=== PATIENT | female | born 1985 ===

== ENCOUNTER 2016-10-04 06:47 | Day surgery (SDC) | payer OTHER ==
[2016-09-16 13:56] VITALS: BMI 30.4
[2016-10-04] MEDS ORDERED: Lidocaine 2% w Epi 1:100,000 Inj IJ ONE (07:33)
[2016-10-04] MEDS ORDERED: ceFAZolin IV 1 gm in Dextrose 1 GM/50 ML BAG IVPB ONE (07:33)
[2016-10-04] MEDS ORDERED: Acetaminophen-Codeine 300/30 mg Tab PO PRN (07:54)
[2016-10-04] MEDS ORDERED: Dextrose 5%/0.45% NS 1,000 ML IV SCH (08:00)
[2016-10-04] MEDS ORDERED: Midazolam 2 MG/2 ML VIAL ONE (08:13)
[2016-10-04] MEDS ORDERED: Propofol 10 mg/ml Inj (20 ML) ONE (08:13)
[2016-10-04] MEDS ORDERED: Rocuronium 10 mg/ml (10 ml) ONE (08:16)
[2016-10-04] MEDS ORDERED: Phenylephrine 10 mg/ml Inj ONE (08:17)
[2016-10-04] MEDS ORDERED: Lidocaine 4% (Laryng-O-Jet) Kit MM ONE (08:18)
[2016-10-04] MEDS ORDERED: Lactated Ringer's 1,000 ML IV ONE ×2 (08:20→09:47)
[2016-10-04] MEDS ORDERED: Esmolol 100 mg/10ml Inj IV ONE (08:57)
[2016-10-04] MEDS ORDERED: Neostigmine Methylsulfate 3mg/3ml Syringe IV ONE (09:29)
[2016-10-04] MEDS ORDERED: HYDROmorphone 0.5 mg/0.5 ml ISec IVP PRN (09:50)
[2016-10-04] MEDS ORDERED: HYDROmorphone 0.5 mg/0.5 ml ISec IVP ONE ×2 (10:26→10:54)
--- NOTE | 2016-10-04 11:07 | OP ---
PROCEDURE DATE: 10/04/2016 PREPROCEDURE DIAGNOSES: Deviated septum, enlarged turbinates, sinusitis. POSTPROCEDURE DIAGNOSES: Deviated septum, enlarged turbinates, sinusitis. PROCEDURES: Endoscopic bilateral maxillary antrostomy, endoscopic bilateral ethmoidectomy, endoscopi c bilateral sphenoidotomy, endoscopic bilateral inferior turbinate reduction, septoplasty. SIGNIFICANT FINDINGS: Maxillary and sphenoid antrum stenosed on both sides, sinusitis changes noted in the ethmoid sinuses, septum is deviated, inferior turbinates enlarged. DESCRIPTION OF PROCEDURE: The patient was brought in room, placed in a supine position. Anesthesia was initiated through an ET tube. Navigation was set up and used throughout the case in order to ens ure that the skull base and orbits were not entered. Adrenaline soaked pledgets were inserted in the nasal cavity for at least 5 minutes, then removed. The patient was draped in the usual manner. The septum was injected on both sides with lidocaine with epinephrine. A [place]'s incision was made on the left and a mucoperichondrial flap was raised. A vertical incision was made in the cartilage nicole ving a 1.5 cm superior and anterior strut. A mucoperichondrial flap was raised on the other side. D eviated portion of the cartilage and bone were removed using forceps and chisel. A quilting suture w as used to suture the 2 flaps together and close the [place]'s incision. A 0 degree scope was used t o visualize the inferior turbinates, which were noted to be enlarged and reduced in size using scisso rs, going from an inferior to superior, anterior to posterior direction on both sides, first on the l eft, then on the right. Bleeding was controlled using suction cautery. Next, attention was turned t o the left. The middle turbinate was injected with lidocaine with epinephrine and medialized. The u ncinate process was medialized using a [place] elevator and removed. Debrider was used to enter the et hmoid bulla, going posteriorly to the basal lamella, then anteriorly and superiorly until the ethmoid bulla was removed. Basal lamella was entered. Posterior ethmoid cells were entered and opened. Sk ull base was identified and followed anteriorly, all the way to the area of the anterior ethmoid air cells. Next, a curved suction hooked up to navigation was used to locate the maxillary antrum, which was noted to be stenosed and opened using forceps. Bleeding was controlled using adrenaline soaked pledgets. Attention was turned to the other side. The middle turbinate was injected with lidocaine with epinephrine and medialized. The uncinate process was medialized and removed. The ethmoid bulla was entered inferomedially, going posteriorly to the basal lamella, then anteriorly and superiorly u ntil the ethmoid bulla was removed. The basal lamella was entered. Posterior ethmoid cells were ent ered and opened. Skull base was identified and followed anteriorly all the way to the area of the an terior ethmoid air cells. Curved suction hooked up to navigation was used to locate the maxillary an trum, which was noted to be stenosed and opened using forceps. Next, suction was used to locate the sphenoid antrum, first on the left, then on the right. They were both noted to be stenosed and opene d using forceps. Splints were placed. Stents were placed. The patient was taken off anesthesia and taken to recovery room in stable manner. Joaquin Quinones MD cc: [id number] TT: 10/04/2016 11:06:03 en
[2016-10-04 11:43] VITALS: PULSE 66
[2016-10-04 12:35] VITALS: BP 119/60; RESP 18; TEMP 97.6; O2SAT 97
== END 2016-10-04 13:13 | disposition home or self-care (01) ==
LOC: C.SDS 06:47
PROVIDERS: ATTEND Otolaryngology
DX: J32.3 Chronic sphenoidal sinusitis (principal); J34.2 Deviated nasal septum; J34.3 Hypertrophy of nasal turbinates; J32.0 Chronic maxillary sinusitis; J32.2 Chronic ethmoidal sinusitis; E11.9 Type 2 diabetes mellitus without complications; D64.9 Anemia, unspecified; Z98.890 Other specified postprocedural states; Z79.84 Long term (current) use of oral hypoglycemic drugs; Z79.899 Other long term (current) drug therapy